=== PATIENT | female | born 1980 | race Caucasian/White ===

== ENCOUNTER 2017-02-08 13:30 | Emergency (ER) | payer BC ==
--- NOTE | 2017-02-08 13:49 | ER Document Report ---
ED Psych Disorder / Suicide - General Chief Complaint: Suicidal Ideation Stated Complaint: PSYCH EVAL Time Seen by Provider: 02/08/17 13:36 Information source: Patient Notes: 36-year-old female who presents today voluntarily with her . Suicidal ideations over the last 2 weeks. Patient and state that the patient is very upset secondary to 5 miscarriages in the past and recently failed adoption. Patient has no distinct plan. She denies a history of suicide attempt in the past. She denies any nausea, vomiting, fevers, headache, chest pain, weakness or numbness. Patient has some baseline hip pain. Patient actually has a psychiatry appointment scheduled for this coming week. TRAVEL OUTSIDE OF THE [place] IN LAST 30 DAYS: No - HPI Patient complains to provider of: Suicidal ideation Onset: Other - See above Quality of pain: No pain Severity: Moderate Pain Level: 1 Suicide Risk Factors: Depressed. No: Age <19, Age >65, Bipolar, Chronic illness , Frightened friends/family, Hallucinations, Lack of social support, Left letter of attempt, Loss of rational thought, Male, No spouse, Organized plan, Panic disorder, Prior suicide attempt, Schizophrenia, Substance abuse, Other mental health dx. Situational problems related to: Other - See above Normal mood: No Associated symptoms: Tearful Similar symptoms previously: No Recently seen / treated by doctor: No - Related Data Allergies/Adverse Reactions: escitalopram oxalate [From Lexapro] Allergy (Mild, Verified 04/14/15 14:02) NAUSEA, EYE PAIN PEANUTS Allergy (Mild, Uncoded 04/14/15 14:02) UNKNOWN Past Medical History - General Information source: Patient - Social History Smoking Status: Unknown if Ever Smoked Cigarette use (# per day): No Chew tobacco use (# tins/day): No Smoking Education Provided: No Frequency of alcohol use: None Family History: Reviewed & Not Pertinent - Past Medical History Cardiac Medical History: Denies: Hx Coronary Artery Disease, Hx Heart Attack, Hx Hypertension Pulmonary Medical History: Reports: Hx Asthma - exercise induced; inhaler prn Denies: Hx Bronchitis, Hx COPD, Hx Pneumonia Neurological Medical History: Denies: Hx Cerebrovascular Accident, Hx Seizures Renal/ Medical History: Denies: Hx Peritoneal Dialysis GI Medical History: Musculoskeltal Medical History: Denies Hx Arthritis Psychiatric Medical History: Reports: Hx Depression Infectious Medical History: Past Surgical History: Reports: Hx Gynecologic Surgery - ectopic , Hx Orthopedic Surgery - back, and right leg. Denies: Hx Hysterectomy - Immunizations Hx Diphtheria, Pertussis, Tetanus Vaccination: No Review of Systems - Review of Systems Constitutional: denies: Fever EENT: denies: Eye discharge, Nose discharge Cardiovascular: Palpitations. denies: Chest pain, Lightheaded Respiratory: denies: Short of breath Gastrointestinal: denies: Vomiting Genitourinary: denies: Dysuria Musculoskeletal: denies: Leg swelling Skin: Other - no hives. denies: Rash Neurological/Psychological: Other - no slurred speech -: Yes All other systems reviewed and negative Physical Exam - Vital signs Vitals: Temp Pulse Resp BP Pulse Ox 98.3 F 90 16 147/73 H 98 02/08/17 13:33 02/08/17 13:33 02/08/17 13:33 02/08/17 13:33 02/08/17 13:33 Notes: Reviewed vital signs and nursing note as charted by RN. CONSTITUTIONAL: Alert and oriented and responds appropriately to questions. Well -appearing; well-nourished HEAD: Normocephalic; atraumatic EYES: PERRL; Conjunctivae clear, sclerae non-icteric ENT: Normal nose; no rhinorrhea; moist mucous membranes; pharynx without lesions noted NECK: Supple without meningismus; non-tender; no palpable masses; no cervical lymphadenopathy, no masses CARD: Regular rate and rhythm; no murmurs, no clicks, no rubs, no gallops; symmetric distal pulses RESP: Normal chest excursion without splinting or tachypnea; breath sounds clear and equal bilaterally; no wheezes, no rhonchi, no rales ABD/GI: Normal bowel sounds; non-distended; soft, non-tender BACK: The back appears normal and is non-tender to palpation EXT: Normal ROM in all joints; non-tender to palpation; no cyanosis, no effusions, no edema SKIN: Normal color for age and race; warm; dry; good turgor; capillary refill < 2 seconds; no acute lesions noted NEURO: CN II through XII are intact. Moves all extremities equally; Motor and sensory function intact PSYCH: The patient is tearful in affect Course - Re-evaluation Re-evalutation: 02/08/17 13:48 Given history and physical examination we will order basic labs, TSH, and psychiatric consultation. Patient is here voluntarily and currently has no plan. No severe psychiatric history. I'm comfortable that if the patient remains calm and cooperative, we help facilitate excellent follow-up, and possible medication adjustment, that the patient may be able to be discharged home with psychiatric follow-up. 02/08/17 14:04 EKG shows a heart of 78, normal sinus rhythm, normal axis, narrow QRS, no obvious ST elevation or depression. 02/08/17 15:52 Patient has agreed to a voluntary hold while he reassess and treatment medications. I believe this is reasonable. Patient is very kind and cooperative in no acute distress. Labs as recorded. Normal thyroid exam. - Vital Signs Vital signs: Temp Pulse Resp BP Pulse Ox 98.3 F 90 16 147/73 H 98 02/08/17 13:33 02/08/17 13:33 02/08/17 13:33 02/08/17 13:33 02/08/17 13:33 - Laboratory Result Diagrams: 02/08/17 13:45 02/08/17 13:45 Laboratory results interpreted by me: 02/08/17 02/08/17 02/08/17 13:45 13:45 13:50 WBC 11.1 H Absolute Neutrophils 8.4 H Urine Blood SMALL H Salicylates < 1.0 L Acetaminophen < 10 L Discharge - Discharge Clinical Impression: Anxiety Depression Qualifiers: Depression Type: unspecified Qualified Code(s): F32.9 - Major depressive disorder, single episode, unspecified Condition: Fair Disposition: HOME, SELF-CARE
[2017-02-08 14:24] LABS: APPEARANCE,URINE CLEAR; BILIRUBIN,URINE NEGATIVE (NEGATIVE); GLUCOSE, URINE NEGATIVE (NEGATIVE); KETONES,URINE NEGATIVE (NEGATIVE); LEUKOCYTE ESTERASE,URINE NEGATIVE (NEGATIVE); NITRITE,URINE NEGATIVE (NEGATIVE); PROTEIN,URINE NEGATIVE (NEGATIVE); URINE SPECIFIC GRAVITY 1.011; UROBILINOGEN,URINE NEGATIVE mg/dL (<2.0)
[2017-02-08 14:30] LABS: ABSOLUTE EOSINOPHILS # (AUTO) 0.1 10^3/uL (0.0-0.6); ABSOLUTE LYMPHOCYTES (AUTO) 2.1 10^3/uL (0.5-4.7); ABSOLUTE MONOCYTES (AUTO) 0.5 10^3/uL (0.1-1.4); ABSOLUTE NEUT (AUTO) 8.4 10^3/uL (1.7-8.2); BASOPHILS % (AUTO) 0.3 % (0-2); EOSINOPHILS % (AUTO) 0.6 % (0-6); HEMATOCRIT 38.8 % (36.0-47.0); HGB HCT DIFFERENCE 0.2; LYMPHOCYTES % (AUTO) 19.2 % (13-45); MEAN CORPUSCULAR HEMOGLOBIN 30.1 pg (27.0-33.4); MEAN CORPUSCULAR HGB CONC 33.4 g/dL (32.0-36.0); MEAN CORPUSCULAR VOLUME 90 fl (80-97); MONOCYTES % (AUTO) 4.2 % (3-13); RED CELL DISTRIBUTION WIDTH 12.8 % (11.5-14.0); SEGMENTED NEUTROPHILS % (AUTO) 75.7 % (42-78); WHITE BLOOD COUNT 11.1 10^3/uL (4.0-10.5)
[2017-02-08 14:44] LABS: URINE BARBITURATES SCREEN NEGATIVE; URINE METHADONE SCREEN NEGATIVE; URINE OPIATES LOW NEGATIVE; URINE PHENCYCLIDINE SCREEN NEGATIVE
[2017-02-08 14:48] LABS: ALANINE AMINOTRANSFERASE 27 U/L (9-52); ALBUMIN 4.5 g/dL (3.5-5.0); ALKALINE PHOSPHATASE 60 U/L (38-126); ANION GAP 11 (5-19); ASPARTATE AMINO TRANSFERASE 18 U/L (14-36); BILIRUBIN,DIRECT 0.4 mg/dL (0.0-0.4); BILIRUBIN,TOTAL 0.7 mg/dL (0.2-1.3); BLOOD UREA NITROGEN 16 mg/dL (7-20); CALCIUM 9.6 mg/dL (8.4-10.2); CARBON DIOXIDE 25 mmol/L (22-30); CHLORIDE 104 mmol/L (98-107); GLUCOSE 87 mg/dL (75-110); SODIUM 139.6 mmol/L (137-145); TOTAL PROTEIN 7.8 g/dL (6.3-8.2)
[2017-02-08 14:49] LABS: ALCOHOL < 10 mg/dL (NONE DETECTED)
--- NOTE | 2017-02-08 16:10 | PSYCHOLOGICAL NOTE ---
Psych Note - Psych Note Psych Note: Patient is a 36-year-old female who presents via her was suicidal ideations. Patient denies a specific plan but states she wants to . Patient states she genuinely feels like the world's, and specifically her family would be better off without her. Patient reports most recently a failed adoption. She states it was a familial adoption and she flew to [place] to take custody of the baby; however, when she arrived the biological mother/family member decided to attempt to raise the baby on her own. Patient states this devastated her. Patient reports she and her do have 1 child , and 8-year-old son. She reports 5 previous miscarriages, with traumatic medical complications coinciding. Patient reports [place] and arrived at work today and started talking to some of her coworkers about her deep depression and sadness. Patient reports a friend did schedule her an appointment for with a therapist at [facility]. Patient reports she does not feel as though she can make it and is not safe to be home. Patient states her mother has flown here and opted to stay longer due to noticing she was not quite herself. Patient states she cries randomly throughout the day, and has general apathy towards all activities and individuals. He shouldn't reports additional medical problems as partial thyroid removal, partial tubal ligation, pending back surgery, and narcolepsy. Patient states it is not the "movie type" of narcolepsy were individuals follow sleep and their meals. She states she is followed by specialists for this condition and takes medications. Patient reports physiologically she is very sensitive to medications and has tried antidepressants in the past to include Lexapro, Effexor, and Wellbutrin at different times. She states the Effexor made her physically ill and the other 2 resulted in severe headaches. Patient denies any substance abuse/use. Patient denies any prior suicide attempts and/ or inpatient psychiatric hospitalizations. Patient reports she has not identified a plan on how she would commit suicide, but notes there are pills in the home she could use to overdose or firearms. Patient's is bedside and states he is law enforcement and does have his service unit at home as well as other personal weapons. He states he is willing to remove these and/or secure behind a locked cabinet. reports she has been struggling with depression and this failed adoption has changed her. He reports she frequently cries, she he will find her laying on the floor crying, or sitting in the shower crying. He states she does do her best to present well in front of their son, but can tell that she is exhausted. Unspecified Depressive Disorder R/O PTSD Patient is recommended for a mental health hold. Patient will remain voluntary with the understanding that should she try to leave abruptly she will be petitioned for an involuntary commitment. Patient presents hopeless and feels as though the world would be better off without her, to include her son and . ELIZABETH Washburn is in agreement with this plan of care. I consulted with Dr. Esteban in regards to the care and management of this patient. Note, patient is aware that she will not be allowed to leave the Department, and if she does, she will be involuntarily committed. Patient has agreed to remain as a voluntary patient seeking help for her depression and SI.
[2017-02-08] MEDS ORDERED: CITALOPRAM HYDROBROMIDE 20 MG TABLET PO SCH (18:00)
[2017-02-08] MEDS ORDERED: GABAPENTIN 300 MG CAPSULE PO SCH (18:00)
[2017-02-08 18:29] VITALS: BP 135/60
[2017-02-08] MEDS ORDERED: BUSPIRONE HCL 10 MG TABLET PO SCH (22:00)
--- NOTE | 2017-02-08 22:13 | EKG REPORT ---
SEVERITY:- NORMAL ECG - SINUS RHYTHM : Confirmed by: Rabia Shrestha MD 08-Feb-2017 22:12:15
[2017-02-09] MEDS ORDERED: DIPHENHYDRAMINE HCL 25 MG CAPSULE ONE (04:59)
[2017-02-09] MEDS ORDERED: ONDANSETRON 4 MG TAB.RAPDIS ONE (10:07)
== END 2017-02-09 12:30 | disposition home or self-care (01) ==
LOC: ER 13:30
DX: F41.9 Anxiety disorder, unspecified (principal); F32.9 Major depressive disorder, single episode, unspecified
CPT/HCPCS: 93005; 99285; 36415; 80307 ×4; 84443; 85025; 81025; 80053; 81001; 93010; S0119

== ENCOUNTER 2018-04-24 16:26 | Emergency (ER) | payer BC ==
[2018-04-24] MEDS ORDERED: ASPIRIN 81 MG TABLET, CHEWABLE PO ONE (17:05)
[2018-04-24] MEDS ORDERED: ALPRAZOLAM 0.5 MG TABLET PO ONE (17:06)
--- NOTE | 2018-04-24 17:07 | ER Document Report ---
ED Medical Screen (RME) - General Chief Complaint: Palpitations Stated Complaint: RAPID HEART RATE/DIZZINESS Time Seen by Provider: 04/24/18 17:05 Notes: 37 years old female with no significant past medical history other than narcolepsy and chronic pain presents today with palpitation and left precordial chest pain. On and off for the last 2 days. Denies any left arm numbness tingling sensation nausea vomiting palpitation or diaphoresis. Feeling anxious too. TRAVEL OUTSIDE OF THE [place] IN LAST 30 DAYS: No - Related Data Allergies/Adverse Reactions: escitalopram oxalate [From Lexapro] Allergy (Mild, Verified 04/14/15 14:02) NAUSEA, EYE PAIN PEANUTS Allergy (Mild, Uncoded 04/14/15 14:02) UNKNOWN Past Medical History - Past Medical History Cardiac Medical History: Denies: Hx Coronary Artery Disease, Hx Heart Attack, Hx Hypertension Pulmonary Medical History: Reports: Hx Asthma - exercise induced; inhaler prn Denies: Hx Bronchitis, Hx COPD, Hx Pneumonia Neurological Medical History: Denies: Hx Cerebrovascular Accident, Hx Seizures Renal/ Medical History: Denies: Hx Peritoneal Dialysis GI Medical History: Musculoskeltal Medical History: Denies Hx Arthritis Psychiatric Medical History: Reports: Hx Depression Infectious Medical History: Past Surgical History: Reports: Hx Gynecologic Surgery - ectopic , Hx Orthopedic Surgery - back, and right leg. Denies: Hx Hysterectomy - Immunizations Hx Diphtheria, Pertussis, Tetanus Vaccination: No Physical Exam - Vital signs Vitals: Temp Pulse Resp BP Pulse Ox 98.7 F 93 16 127/58 H 100 04/24/18 16:43 04/24/18 16:43 04/24/18 16:43 04/24/18 16:43 04/24/18 16:43 Course - Vital Signs Vital signs: Temp Pulse Resp BP Pulse Ox 98.7 F 93 16 127/58 H 100 04/24/18 16:43 04/24/18 16:43 04/24/18 16:43 04/24/18 16:43 04/24/18 16:43 Doctor's Discharge - Discharge Referrals: BETH LA MD [Primary Care Provider] - Follow up as needed
[2018-04-24 17:39] LABS: ABSOLUTE LYMPHOCYTES (AUTO) 1.7 10^3/uL (0.5-4.7); ABSOLUTE MONOCYTES (AUTO) 0.7 10^3/uL (0.1-1.4); ABSOLUTE NEUT (AUTO) 10.3 10^3/uL (1.7-8.2); BASOPHILS % (AUTO) 0.2 % (0-2); EOSINOPHILS % (AUTO) 0.4 % (0-6); HEMOGLOBIN 14.2 g/dL (12.0-15.5); LYMPHOCYTES % (AUTO) 13.2 % (13-45); MEAN CORPUSCULAR HGB CONC 33.8 g/dL (32.0-36.0); MEAN CORPUSCULAR VOLUME 89 fl (80-97); MONOCYTES % (AUTO) 5.5 % (3-13); PLATELET COUNT 283 10^3/uL (150-450); RED BLOOD COUNT 4.73 10^6/uL (3.72-5.28); SEGMENTED NEUTROPHILS % (AUTO) 80.7 % (42-78); TOTAL CELLS COUNTED % (AUTO) 100 %; WHITE BLOOD COUNT 12.8 10^3/uL (4.0-10.5)
--- NOTE | 2018-04-24 17:49 | RADIOLOGY REPORT (SQ) ---
EXAM DESCRIPTION: CHEST SINGLE VIEW COMPLETED DATE/TIME: 04/24/2018 5:26 pm REASON FOR STUDY: Chest pain COMPARISON: 09/22/2012 EXAM PARAMETERS: NUMBER OF VIEWS: One view. TECHNIQUE: Single frontal radiographic view of the chest acquired. RADIATION DOSE: NA LIMITATIONS: None. FINDINGS: LUNGS AND PLEURA: No opacities, masses or pneumothorax. No pleural effusion. MEDIASTINUM AND HILAR STRUCTURES: No masses. Contour normal. HEART AND VASCULAR STRUCTURES: Heart normal in size. Normal vasculature. BONES: No acute findings. HARDWARE: None in the chest. OTHER: No other significant finding. IMPRESSION: NO ACUTE RADIOGRAPHIC FINDING IN THE CHEST. TECHNICAL DOCUMENTATION: JOB ID: [id number] [employer]- All Rights Reserved Reading location - IP/workstation name: [email or web address]
[2018-04-24 17:52] LABS: ALANINE AMINOTRANSFERASE 28 U/L (9-52); ALBUMIN 4.9 g/dL (3.5-5.0); ALKALINE PHOSPHATASE 51 U/L (38-126); ANION GAP 14 (5-19); ASPARTATE AMINO TRANSFERASE 19 U/L (14-36); BILIRUBIN,DIRECT 0.2 mg/dL (0.0-0.4); BILIRUBIN,TOTAL 0.6 mg/dL (0.2-1.3); BLOOD UREA NITROGEN 17 mg/dL (7-20); CARBON DIOXIDE 26 mmol/L (22-30); CHLORIDE 105 mmol/L (98-107); CREATINE KINASE 57 U/L (30-135); GLUCOSE 92 mg/dL (75-110); POTASSIUM 3.9 mmol/L (3.6-5.0); SODIUM 145.3 mmol/L (137-145); TOTAL PROTEIN 8.3 g/dL (6.3-8.2)
--- NOTE | 2018-04-24 17:55 | EKG REPORT ---
SEVERITY:- NORMAL ECG - SINUS RHYTHM : Confirmed by: Jigar Young 24-Apr-2018 17:54:57
[2018-04-24 18:14] LABS: TROPONIN I < 0.012 ng/mL
[2018-04-24 18:25] LABS: PHOSPHORUS 2.9 mg/dL (2.5-4.5)
[2018-04-24] MEDS ORDERED: METOCLOPRAMIDE HCL INJ/PF 10 MG/2 ML SDV IV ONE (18:37)
[2018-04-24] MEDS ORDERED: RINGERS SOLUTION,LACTATED 1,000 ML IV PRN (18:37)
[2018-04-24] MEDS ORDERED: DIPHENHYDRAMINE HCL 50 MG/ML VIAL IV ONE (18:37)
[2018-04-24] MEDS ORDERED: KETOROLAC TROMETHAMINE INJ/PF 30 MG/1 ML SDV IV ONE (18:38)
--- NOTE | 2018-04-24 18:38 | ER Document Report ---
ED General - General Chief Complaint: Palpitations Stated Complaint: RAPID HEART RATE/DIZZINESS Time Seen by Provider: 04/24/18 17:05 Mode of Arrival: Ambulatory Information source: Patient, [facility] Records Notes: 37-year-old female with asthma, chronic pain, partial thyroidectomy presents with complaint of palpitations, nausea, headache and dizziness. Patient states that palpitations have been ongoing for several months. She states that "these palpitations are different". She cannot specifically tell me why either different. She has been placed on Holter monitor 2 and reports that they were "inconclusive". Patient's nausea, headache and dizziness started 2 days prior to arrival. Patient's headache is described as a diffuse throbbing headache. Dizziness is described as lightheadedness. She denies associated vomiting, abdominal pain, chest pain, shortness of breath, sick contacts. She does state that she has had a change in her medication is where she went from gabapentin to Lyrica then back to gabapentin. TRAVEL OUTSIDE OF THE [place] IN LAST 30 DAYS: No - HPI Onset: Other Onset/Duration: Gradual, Intermittent, Worse Quality of pain: Throbbing Severity: Mild Associated symptoms: Headache, Nausea. denies: Chest pain, Diarrhea, Fever, Shortness of breath Exacerbated by: Supine Relieved by: Denies Similar symptoms previously: Yes Recently seen / treated by doctor: Yes - Related Data Allergies/Adverse Reactions: escitalopram oxalate [From Lexapro] Allergy (Mild, Verified 04/14/15 14:02) NAUSEA, EYE PAIN PEANUTS Allergy (Mild, Uncoded 04/14/15 14:02) UNKNOWN Past Medical History - General Information source: Patient, [facility] Records - Social History Smoking Status: Former Smoker Frequency of alcohol use: None Drug Abuse: None Lives with: Spouse/Significant other Family History: Reviewed & Not Pertinent Patient has suicidal ideation: No Patient has homicidal ideation: No - Past Medical History Cardiac Medical History: Denies: Hx Coronary Artery Disease, Hx Heart Attack, Hx Hypertension Pulmonary Medical History: Reports: Hx Asthma - exercise induced; inhaler prn Denies: Hx Bronchitis, Hx COPD, Hx Pneumonia Neurological Medical History: Denies: Hx Cerebrovascular Accident, Hx Seizures Renal/ Medical History: Denies: Hx Peritoneal Dialysis GI Medical History: Musculoskeletal Medical History: Denies Hx Arthritis Psychiatric Medical History: Reports: Hx Depression Infectious Medical History: Past Surgical History: Reports: Hx Gynecologic Surgery - ectopic , Hx Orthopedic Surgery - back, and right leg. Denies: Hx Hysterectomy - Immunizations Hx Diphtheria, Pertussis, Tetanus Vaccination: No Review of Systems - Review of Systems Notes: REVIEW OF SYSTEMS: CONSTITUTIONAL : Denies fever, chills, or sweats. Denies recent illness. Denies weight loss, recent hospitalizations. EENT: Denies visual changes, eye pain. Denies nasal or sinus congestion or discharge. Denies sore throat, oral lesions, difficulty swallowing. CARDIOVASCULAR: Denies chest pain. Denies lower extremity edema. RESPIRATORY: Denies cough, cold, or chest congestion. Denies shortness of breath, wheezing. GASTROINTESTINAL: Denies abdominal pain or distention. Denies nausea, vomiting , or diarrhea. Denies blood in vomitus, stools, or per rectum. Denies black, tarry stools. Denies constipation. GENITOURINARY: Denies difficulty urinating, painful urination, frequency, blood in urine, or vaginal discharge. MUSCULOSKELETAL: Denies back or neck pain or stiffness. Denies joint pain or swelling. SKIN: Denies rash, lesions or sores. HEMATOLOGIC : Denies easy bruising or bleeding. LYMPHATIC: Denies swollen glands. NEUROLOGICAL: Denies confusion or altered mental status. Denies passing out or loss of consciousness. Denies weakness or paralysis. Denies problems difficulty with ambulation, slurred speech. Denies sensory loss, numbness, or tingling. Denies seizures. PSYCHIATRIC: Denies anxiety or stress. Denies depression, suicidal ideation, or homicidal ideation. Denies visual or auditory hallucinations. Physical Exam - Vital signs Vitals: Temp Pulse Resp BP Pulse Ox 98.7 F 93 16 127/58 H 100 04/24/18 16:43 04/24/18 16:43 04/24/18 16:43 04/24/18 16:43 04/24/18 16:43 Interpretation: No: Tachycardic, Febrile - Notes Notes: PHYSICAL EXAMINATION: GENERAL: Well-appearing, well-nourished and in no acute distress. HEAD: Atraumatic, normocephalic. EYES: Pupils equal round and reactive to light, extraocular movements intact, conjunctiva are normal. ENT: Nares patent, oropharynx clear without exudates. Moist mucous membranes. NECK: Normal range of motion, supple without lymphadenopathy LUNGS: Breath sounds clear to auscultation bilaterally and equal. No wheezes rales or rhonchi. HEART: Regular rate and rhythm without murmurs ABDOMEN: Soft, nontender, nondistended abdomen. No guarding, no rebound. No masses appreciated. Female : deferred Musculoskeletal: Normal range of motion, no pitting or edema. No cyanosis. NEUROLOGICAL: Cranial nerves grossly intact. Normal speech, normal gait. Normal sensory, motor exams PSYCH: Normal mood, normal affect. SKIN: Warm, Dry, normal turgor, no rashes or lesions noted. Course - Re-evaluation Re-evalutation: 04/24/18 18:37 Laboratory 04/24/18 04/24/18 04/24/18 17:23 17:23 17:23 WBC 12.8 H RBC 4.73 Hgb 14.2 Hct 42.0 MCV 89 MCH 30.0 MCHC 33.8 RDW 14.0 Plt Count 283 Seg Neutrophils % 80.7 H Lymphocytes % 13.2 Monocytes % 5.5 Eosinophils % 0.4 Basophils % 0.2 Absolute Neutrophils 10.3 H Absolute Lymphocytes 1.7 Absolute Monocytes 0.7 Absolute Eosinophils 0.0 Absolute Basophils 0.0 Sodium 145.3 H Potassium 3.9 Chloride 105 Carbon Dioxide 26 Anion Gap 14 BUN 17 Creatinine 0.84 Est GFR ( Amer) > 60 Est GFR (Non-Af Amer) > 60 Glucose 92 Calcium 10.0 Phosphorus Magnesium Total Bilirubin 0.6 Direct Bilirubin 0.2 Neonat Total Bilirubin Not Reportable Neonat Direct Bilirubin Not Reportable Neonat Indirect Bili Not Reportable AST 19 ALT 28 Alkaline Phosphatase 51 Creatine Kinase 57 CK-MB (CK-2) 0.30 Troponin I < 0.012 Total Protein 8.3 H Albumin 4.9 04/24/18 17:23 WBC RBC Hgb Hct MCV MCH MCHC RDW Plt Count Seg Neutrophils % Lymphocytes % Monocytes % Eosinophils % Basophils % Absolute Neutrophils Absolute Lymphocytes Absolute Monocytes Absolute Eosinophils Absolute Basophils Sodium Potassium Chloride Carbon Dioxide Anion Gap BUN Creatinine Est GFR ( Amer) Est GFR (Non-Af Amer) Glucose Calcium Phosphorus 2.9 Magnesium 2.0 Total Bilirubin Direct Bilirubin Neonat Total Bilirubin Neonat Direct Bilirubin Neonat Indirect Bili AST ALT Alkaline Phosphatase Creatine Kinase CK-MB (CK-2) Troponin I Total Protein Albumin Chest X-Ray 04/24/18 17:06 IMPRESSION: NO ACUTE RADIOGRAPHIC FINDING IN THE CHEST. 37-year-old female with asthma, chronic pain, partial thyroidectomy presents with complaint of palpitations, nausea, headache and dizziness. Patient states that palpitations have been ongoing for several months. She states that "these palpitations are different". She cannot specifically tell me why either different. She has been placed on Holter monitor 2 and reports that they were "inconclusive". Patient's nausea, headache and dizziness started 2 days prior to arrival. Patient was seen by myself upon arrival. Vital signs were reviewed. Patient is afebrile, normotensive and not hypoxic. Patient does not appear toxic or dehydrated. They are in no acute distress. Previous medical records and nursing notes reviewed. EKG was obtained to the patient be in normal sinus rhythm. CBC shows mild leukocytosis but no anemia. CMP is without electrolyte abnormalities. Magnesium and phosphorus as well as TSH are all within normal limits. patient did receive IV fluids, Reglan, Benadryl. Her heart rate has remained within normal limits throughout her entire ED course. 04/24/18 20:23 On reevaluation patient states her nausea and headache have improved. She is requesting discharge home so her can go to work. She does not want to stay for the rest of her fluids. 04/24/18 23:03 04/24/18 23:03 - Vital Signs Vital signs: Temp Pulse Resp BP Pulse Ox 98.7 F 93 20 108/56 L 98 04/24/18 16:43 04/24/18 16:43 04/24/18 20:01 04/24/18 20:01 04/24/18 20:01 - Laboratory Result Diagrams: 04/24/18 17:23 04/24/18 17:23 Laboratory results interpreted by me: 04/24/18 04/24/18 17:23 17:23 WBC 12.8 H Seg Neutrophils % 80.7 H Absolute Neutrophils 10.3 H Sodium 145.3 H Total Protein 8.3 H - Diagnostic Test Radiology reviewed: Image reviewed, Reports reviewed - EKG Interpretation by Me EKG shows normal: Sinus rhythm Rate: Normal Rhythm: NSR When compared to previous EKG there are: No significant change Discharge - Discharge Clinical Impression: Heart palpitations Nausea & vomiting Qualifiers: Vomiting type: unspecified Vomiting Intractability: unspecified Qualified Code( s): R11.2 - Nausea with vomiting, unspecified Headache Qualifiers: Headache type: unspecified Headache chronicity pattern: unspecified pattern Intractability: not intractable Qualified Code(s): R51 - Headache Condition: Good Disposition: HOME, SELF-CARE Instructions: Headache ([facility]), Nausea or Vomiting, Nonspecific ([facility]), Palpitations (Irregular or Rapid Heartrate) ([facility]), Viral Syndrome ([facility]) Additional Instructions: Please keep your scheduled appointment with your primary care physician tomorrow. Prescriptions: Ondansetron [Zofran Odt 4 mg Tablet] 1 - 2 tab PO Q4H PRN #15 tab.rapdis PRN Reason: For Nausea/Vomiting Referrals: BETH LA MD [ACTIVE STAFF] - Follow up as needed
[2018-04-24 20:48] VITALS: BP 108/56
== END 2018-04-24 20:47 | disposition home or self-care (01) ==
LOC: ER 16:26
DX: R00.2 Palpitations (principal); R51 Headache; R11.2 Nausea with vomiting, unspecified; J45.909 Unspecified asthma, uncomplicated; E89.0 Postprocedural hypothyroidism; R42 Dizziness and giddiness; D72.829 Elevated white blood cell count, unspecified; G89.29 Other chronic pain; Z79.899 Other long term (current) drug therapy; Z88.8 Allergy status to other drugs, medicaments and biological substances; Z91.010 Allergy to peanuts; Z87.891 Personal history of nicotine dependence
CPT/HCPCS: 93005; 99285; 96375; 96365; 36415; 82553; 82550; 83735; 84100; 84443; 85025; 80053; 84484; 71045; 93010; J1200; J1885; J2765; J7120

== ENCOUNTER → 2018-07-25 | Outpatient (CLI) | payer BC | LOC: OD 10:34 | PROVIDERS: ATTEND Internal Medicine Gastroenterology | DX: R10.9 Unspecified abdominal pain (principal) | CPT/HCPCS: 36415; 85652; 86140 ==

== ENCOUNTER 2018-07-28 08:57 | Day surgery (SDC) | payer BC ==
[~2018-07-28 08:57] MED LIST: DEXAMETHASONE SOD PHOSPHATE INJ 4 MG/1 ML VIAL ONE; ONDANSETRON HCL INJ/PF 4 MG/2 ML SDV ONE; PROPOFOL INJ 200 MG/20 ML VIAL IV ONE
[2018-07-28] MEDS ORDERED: SCOPOLAMINE HYDROBROMIDE 1.5 MG PATCH.TD72 ONE (09:56)
[2018-07-28] MEDS ORDERED: PROMETHAZINE HCL INJ 25 MG/1 ML VIAL IV PRN (10:58)
[2018-07-28] MEDS ORDERED: DIPHENHYDRAMINE HCL 50 MG/ML VIAL IV PRN (10:58)
[2018-07-28] MEDS ORDERED: SIMETHICONE 80 MG TAB.CHEW PO PRN (11:26)
[2018-07-28] MEDS ORDERED: ACETAMINOPHEN 325 MG TABLET PO PRN (11:26)
[2018-07-28] MEDS ORDERED: DEXTROSE 5%-1/2 NORMAL SALINE 1,000 ML IV PRN (11:26)
[2018-07-28] MEDS ORDERED: PROMETHAZINE HCL INJ 25 MG/1 ML VIAL INJ PRN (11:27)
[2018-07-28 12:25] VITALS: BP 128/66
--- NOTE | 2018-07-28 16:55 | Operative Report ---
Operative Report DATE OF SURGERY: 07/28/18 Operative Report: The risks, benefits and alternatives of the procedure including the risk of bleeding, perforation requiring surgery are explained to the patient in detail and informed consent is obtained. Patient is brought back to the operating room and placed in the left, lateral decubital position. Timeout was called. Propofol medication is administered. A rectal examination is done which did not reveal any masses, tears or fissures. An Olympus videoscope was introduced into the patient's rectum. The scope was then carefully advanced all the way to the cecum. Cecum was identified by the usual anatomical landmarks of the ileocecal valve as well as the appendiceal office. Intubation of the terminal ileum is done. Prep is good. The scope was then sequentially pulled back via the various segments of the colon including the ascending colon, hepatic flexure , transverse colon, splenic flexure, descending colon and finally in to the rectosigmoid portions of the colon. Retroflexion maneuver is performed. The risks benefits and alternatives of the procedure explained to the patient in detail and informed consent is obtained.A GIF Olympus video scope was inserted into the patient's mouth and hypopharynx ,the esophagus is identified intubated and insufflated, the scope was then advanced through the esophagus stomach and duodenum ,retroflexion maneuver is done the esophagus stomach and first and second portions of the duodenum examined PREOPERATIVE DIAGNOSIS: Change of bowel habits. Epigastric pain POSTOPERATIVE DIAGNOSIS: Terminal ileitis mild status post random biopsies to rule out Crohn's disease. Internal hemorrhoids. Gastritis status post biopsy rule out Helicobacter pylori. Duodenitis OPERATION: Colonoscopy with biopsy. EGD with biopsy SURGEON: JONATAN BERTRAND ANESTHESIA: LMAC TISSUE REMOVED OR ALTERED: As noted above. COMPLICATIONS: None. ESTIMATED BLOOD LOSS: None. INTRAOPERATIVE FINDINGS: As noted above. PROCEDURE: Patient tolerated the procedure well. No immediate postprocedure complications are noted. Patient discharged in good condition. Discharge date 07/28/2018. Discharge diet: Regular. Discharge activity: Regular. 2-3-week follow-up to discuss findings. Patient is instructed call the office or proceed to the emergency room should there be any further problems or questions. Wait on the pathology.
== END 2018-07-28 12:15 | disposition home or self-care (01) ==
LOC: OROUT 08:57
PROVIDERS: ATTEND Internal Medicine Gastroenterology
DX: K52.9 Noninfective gastroenteritis and colitis, unspecified (principal); K64.8 Other hemorrhoids; K29.80 Duodenitis without bleeding; K29.50 Unspecified chronic gastritis without bleeding; J45.909 Unspecified asthma, uncomplicated; E03.9 Hypothyroidism, unspecified; K58.9 Irritable bowel syndrome, unspecified
CPT/HCPCS: 43239; 45380; 81025; 88342 ×2; 88305 ×2; J1100; J2405; J2704; 813